=== PATIENT | female | born 1975 | race Caucasian/White ===

== ENCOUNTER 2018-10-06 10:47 | Day surgery (SDC) | payer MEDICAID ==
[~2018-10-06] VITALS: Ht 157.5 cm; Wt 127.9 kg
[2018-10-06] MEDS ORDERED: METF500T PO (11:35)
[2018-10-06] MEDS ORDERED: SIMV10TA1 PO (11:35)
[2018-10-06] MEDS ORDERED: LISI-420 PO (11:35)
[2018-10-06] MEDS ORDERED: MIDAZOLAM 2 MG/2 ML VIAL ONE (13:16)
[2018-10-06] MEDS ORDERED: fentaNYL 0.05 MG/ML VIAL ONE (13:16)
[2018-10-06] MEDS ORDERED: MIDAZOLAM 2 MG/2 ML VIAL IVP ONE (13:30)
== END 2018-10-06 14:10 | disposition home or self-care (01) ==
LOC: MDS 10:47 → MMU 10:47 → MDS 14:10
PROVIDERS: ATTEND Internal Medicine Gastroenterology
DX: K20.9 Esophagitis, unspecified (principal); K31.89 Other diseases of stomach and duodenum; I10 Essential (primary) hypertension; E66.01 Morbid (severe) obesity due to excess calories; Z79.84 Long term (current) use of oral hypoglycemic drugs; Z79.899 Other long term (current) drug therapy; Z68.43 Body mass index [BMI] 50.0-59.9, adult
CPT/HCPCS: 36415; 43239; 81025; 86677; J2250; J3010